=== PATIENT | female | born 1955 | race American Indian/Alaskan Native ===

== ENCOUNTER 2017-06-22 19:23 | Emergency (ER) | payer MEDICARE ==
[2017-06-22 20:28] LABS: Basophils % (Auto) 0.6 % (0.0-1.8); Eosinophils % (Auto) 0.1 % (0.0-4.3); Hematocrit 41.7 % (30.3-42.9); Hemoglobin 13.7 gm/dl (10.1-14.3); Mean Corpuscular HGB Conc 33 % (30-34); Mean Corpuscular Hemoglobin 28 pg (28-32); Mean Corpuscular Volume 87 fl (79-97); Platelet Count 321 K/mm3 (140-440); Red Blood Count 4.81 M/mm3 (3.65-5.03); Red Cell Distribution Width 13.5 % (13.2-15.2); White Blood Count 12.8 K/mm3 (4.5-11.0)
[2017-06-22 20:43] LABS: Anion Gap 19 mmol/L; BUN/Creatinine Ratio 21.66; Blood Urea Nitrogen 13 mg/dL (7-17); Calcium 9.1 mg/dL (8.4-10.2); Carbon Dioxide 22 mmol/L (22-30); Glucose 169 mg/dL (65-100); Potassium 3.9 mmol/L (3.6-5.0); Sodium 134 mmol/L (137-145)
[2017-06-22] MEDS ORDERED: GEODON IM ONE (21:42)
--- NOTE | 2017-06-22 21:46 | Emergency Department Report ---
ED Psych HPI - General Chief Complaint: Psych Stated Complaint: MH Time Seen by Provider: 06/22/17 21:30 Source: patient Mode of arrival: Ambulatory Limitations: Altered Mental Status, Other (patient refusing to talk) - History of Present Illness Initial Comments: 61 years old female history of bipolar disorder and schizophrenia brought here by her brother who stated that patient lives on are all in any could not reach on the foreign. He went to her house and found her sitting in her car at home. Brother stated that the patient did not talk to him. He took 2-year-old in send him here for medical clearance patient does have auditory hallucination as statedhe is waving to something on the wall she denied suicidal or homicidal ideation,patient does have history of similar episode 2 years ago where she was [facility], she is did very well with her medication. brother believed that she has not been taking her medication. MD Complaint: feels depressed - Related Data Allergies Allergy/AdvReac Type Severity Reaction Status Date / Time No Known Allergies Allergy Unverified 07/30/14 15:16 ED Review of Systems ROS: Stated complaint: MH Other details as noted in HPI Comment: Unobtainable due to pts medical conditions ED Past Medical Hx - Past Medical History Previous Medical History?: Yes Hx Psychiatric Treatment: Yes (Manic depression, schizophrenia) - Surgical History Past Surgical History?: Yes Additional Surgical History: Fibroids - Social History Smoking Status: Never Smoker ED Physical Exam - General Limitations: Other General appearance: alert (patient refused to talk), in no apparent distress - Head Head exam: Present: atraumatic, normocephalic - Eye Eye exam: Present: normal appearance, PERRL, EOMI - ENT ENT exam: Present: normal exam - Neck Neck exam: Present: normal inspection. Absent: tenderness, meningismus, full ROM - Respiratory Respiratory exam: Present: normal lung sounds bilaterally. Absent: respiratory distress, wheezes, rales, rhonchi, chest wall tenderness - Cardiovascular Cardiovascular Exam: Present: regular rate, normal rhythm, normal heart sounds - GI/Abdominal GI/Abdominal exam: Present: soft. Absent: distended, tenderness, guarding, rebound, rigid, normal bowel sounds - Extremities Exam Extremities exam: Present: normal inspection, full ROM, normal capillary refill. Absent: tenderness - Neurological Exam Neurological exam: Present: alert, CN II-XII intact, normal gait. Absent: motor sensory deficit - Psychiatric Psychiatric exam: Present: depressed, agitated - Skin Skin exam: Present: warm, intact, normal color ED Course Vital Signs 06/22/17 06/22/17 19:55 22:05 Temperature 98.9 F 97.9 F Pulse Rate 94 H 83 Respiratory 20 18 Rate Blood Pressure 171/77 Blood Pressure 148/88 [Left] O2 Sat by Pulse 97 99 Oximetry ED Medical Decision Making - Lab Data Result diagrams: 06/22/17 20:09 06/22/17 20:16 Critical care attestation.: If time is entered above; I have spent that time in minutes in the direct care of this critically ill patient, excluding procedure time. ED Disposition Clinical Impression: Acute psychosis Disposition: [id number]/TX-[id number] PSY HOSP/PSY UNIT Is pt being admited?: No Condition: Stable Referrals: PRIMARY CARE, [Primary Care Provider] - 3-5 Days
[2017-06-23 00:27] VITALS: BP 148/88
== END 2017-06-23 00:25 ==
LOC: ED 19:23 → EEVIPCON 19:23 → ED 06-23 00:25
DX: F23 Brief psychotic disorder (principal); F20.9 Schizophrenia, unspecified
CPT/HCPCS: 36415; 80048; 85025; 96372; 99285; G0480; J3486; 80320